=== PATIENT | female | born 1975 | race Caucasian/White ===

== ENCOUNTER 2024-09-17 11:36 | Emergency (ER) | payer OTHER, SELFPAY ==
[2024-09-17 11:38] VITALS: BP 138/98
[2024-09-17 13:34] LABS: Urine Albumin Negative (Neg - Trace); Urine Bilirubin Negative (Negative); Urine Character Clear (Clear); Urine Color Yellow; Urine Glucose Negative (Negative); Urine Ketone Negative (Negative); Urine Leukocyte Negative (Negative); Urine Nitrite Negative (Negative); Urine Occult Blood Negative (Negative); Urine Urobilinogen Negative (Neg - 1+)
--- NOTE | 2024-09-17 15:02 | ED.GENMED ---
History of Present Illness
General
Chief Complaint: Abdominal Symptoms
Source: patient
Exam Limitations: none
Time Seen by Provider: 09/17/24 14:52
History of Present Illness
History of Present Illness:
48-year-old female complaining of abdominal pain. Started right sided with radiation to the back yesterday. Now more lower abdomen and epigastric comfort. Patient is hungry. No fever or chills. No urinary symptoms. No diarrhea. No one else is
ill at home. No history of similar pain. Patient does not have menses. She is on control.
Past History
Past History
ED Past Medical History: GERD and Other (Anxiety, IBS); Negative HTN, Hypercholesterolemia, IDDM or NIDDM
ED Past Surgical History: None
Social History
Tobacco: Non-smoker
Alcohol: Occasional
Personal:
Living: with family
Employment: Employed
Family History
Family History: CAD
Review of Systems
Review of Systems
All Other Systems: Not applicable
Constitutional: Denies fever
Respiratory: Reports no symptoms
Cardiac: Reports no symptoms
: Reports no symptoms
Phy Exam
Physical Exam
Physical Exam:
GENERAL: Alert and oriented in no apparent distress
EYE: Orbits normal.
NECK: Supple
CARDIAC: Regular rate and rhythm without any obvious murmurs.
LUNGS: Clear breath sounds,normal
ABDOMEN: Soft, without focal tenderness or distention
NEUROLOGICAL: Alert and oriented , grossly non-focal
SKIN: Warm and dry, no rash or lesion, no discoloration, skin intact.
MUSCULOSKELETAL: No edema,no deformity.Good color
PSYCH: Normal and appropriate interaction.
Course
Orders/Labs/Results
Orders:
Orders
09/17/24 13:21
HCG, Urine Qualitative Screen Urgent
Date Specimen was Collected: 09/17/24
Time Specimen was Collected: 12:10
Comment: ADD ON
Urinalysis Reflex To Culture Urgent
Date Specimen was Collected: 09/17/24
Time Specimen was Collected: 12:10
09/17/24 14:58
Add On- LAB Urgent
Tests Added?: qual bhcg
09/17/24 15:01
CT Abd/Pel (IV only)-DH only Urgent
Comment:
Reason For Exam: Diffuse lower abdominal and epigastric pain
IV Insert/Care/Rem.- Treatment PRN
0.9% Sodium Chloride 500 ml [Nss] 500 ml IV BOLUS
09/17/24 15:31
Complete Blood Count/With Diff Urgent
Comprehensive Metabolic Panel Urgent
Lipase Urgent
TSH Reflex To Free T4 Urgent
Abnormal Lab Results
09/17/24
15:31
MCH 32.3 H pg
(27.0-31.0)
Chloride 108 H mmol/L
(98-107)
09/17/24 15:31
09/17/24 15:31
Vital Signs
Initial and Last Documented VS:
Initial Vital Signs
Temp Pulse Resp BP Pulse Ox
98.8 F 104 16 138/98 96
09/17/24 11:38 09/17/24 11:38 09/17/24 11:38 09/17/24 11:38 09/17/24 11:38
Last Documented Vital Signs
Temp Pulse Resp BP Pulse Ox
98.5 F 93 16 157/74 96
09/17/24 15:33 09/17/24 15:33 09/17/24 15:33 09/17/24 15:33 09/17/24 15:33
*Radiology
Radiology exam reviewed: radiology read reviewed (Negative CT scan)
*Pulse Oximetry
Patient hypoxic: no (96%)
*Critical Care Note
Total Time (30-74mins, 75-104mins- exclusive of procedures): Not Applicable
Update Note
Update Note:
Patient medically stable. No serious etiology found for her symptoms. Discharged to follow-up
ED Attending Note
-
Portions of this chart may have been created with voice recognition software.� Occasional wrong word or��sound alike� substitutions may have occurred due to the inherent limitations of voice recognition software.
Discharge Plan
Departure
Patient Disposition: Home (Routine Discharge)
Date of Disposition: 09/17/24
Time of Disposition: 18:04
Patient with high blood pressure during this ER visit?: Yes
Discharge Problem:
Abdominal pain/unknown etiology
Instructions: Abdominal Pain, BLOOD PRESSURE
Prescriptions:
No Action
No Current Medications
0
Referrals:
Jayce Dai MD [Active, Gastroenterology] - Next open appointment
Osbaldo Muir MD [Family Provider, Internal Medicine] - Follow up in 2-3 days
Activity Restrictions/Additional Instructions:
Follow-up closely with your primary physician and also recommend GI follow-up
Light diet
Return with increased pain fever vomiting or any other concerning symptoms
Interventions
Interventions:
*Risk Screen - Suicide Last Done: 09/17/24 11:38
*General Assessment Last Done: 09/17/24 15:33
*Neglect/Abuse Screening Last Done: 09/17/24 11:38
*ED- Fall Risk Assessment Last Done: 09/17/24 15:33
*ED COVID-19 Vaccine History Last Done: 09/17/24 15:33
KW-Ozvart-[id number] Assessment Last Done: 09/17/24 15:33
Discharge Date and Time
Print Language: BERMUDIAN
[2024-09-17 15:20] LABS: HCG, Urine Qualitative Screen Negative
[2024-09-17 15:30] VITALS: BP 157/74
[2024-09-17 15:33] VITALS: BP 157/74; BMI 29.4
[2024-09-17] MEDS: NSS 500 IV (15:37)
[2024-09-17 15:41] LABS: % Basophils 0.5 % (0-2); % Eosinophils 1.3 % (0-6); % Immature Granulocytes 0.3 % (0-0.5); % Lymphocytes 24.6 % (20.5-51.1); % Monocytes 6.8 % (1.7-9.3); % Neutrophils 66.5 % (42.2-75.2); Absolute Basophils 0.1 10^3/uL (0-0.2); Absolute Eosinophils 0.1 10^3/uL (0-0.7); Absolute Lymphocytes 2.3 10^3/uL (1.2-3.4); Absolute Monocytes 0.6 10^3/uL (0.1-0.6); Absolute Neutrophils 6.1 10^3/uL (1.4-6.5); Hematocrit 41.1 % (37.0-47.0); Hemoglobin 13.9 g/dL (12.0-16.0); Mean Corp Hgb Conc. 33.8 g/dL (33.0-37.0); Mean Corpuscular Hgb 32.3 pg (27.0-31.0); Mean Corpuscular Volume 95.4 fL (81.0-99.0); Mean Platelet Volume 9.8 fL (7.4-10.4); Nucleated Red Blood Cells % 0 %; Platelet Count 286 10^3/uL (130-400); Red Blood Cell Count 4.31 10^6/uL (4.20-5.40); Red Cell Dist. Width 12.4 % (11.5-14.5); White Blood Cell Count 9.1 10^3/uL (4.8-10.8)
[2024-09-17 15:55] LABS: ALT (SGPT) 16 U/L (0-35); AST (SGOT) 19 U/L (14-36); Albumin 4.2 g/dl (3.5-5.0); Alkaline Phosphatase 44 U/L (38-126); Blood Urea Nitrogen 12 mg/dl (7-17); Calcium 9.4 mg/dl (8.4-10.2); Carbon Dioxide 24 mmol/L (22-30); Chloride 108 mmol/L (98-107); Estimated Creatinine Clearance 98 ml/min; Glucose 79 mg/dl (70-99); Potassium 3.9 mmol/L (3.5-5.1); Sodium 139 mmol/L (135-145); Total Bilirubin 0.6 mg/dl (0.2-1.3); Total Protein 6.7 g/dl (6.3-8.2); eGFR > 60.00
[2024-09-17 16:00] VITALS: BP 137/70
[2024-09-17 16:26] LABS: Lipase 74 U/L (23-300)
[2024-09-17 16:55] LABS: TSH Reflex To Free T4 0.99 uIU/ml (0.47-4.68)
== END 2024-09-17 18:27 | disposition home or self-care (01) ==
LOC: EMR 11:36
PROVIDERS: Emergency Medicine; EMERGENCY PHYSICIAN Emergency Medicine; FAMILY PHYSICIAN Internal Medicine
DX: R10.9 Unspecified abdominal pain (principal); K21.9 Gastro-esophageal reflux disease without esophagitis; F41.9 Anxiety disorder, unspecified; K58.9 Irritable bowel syndrome, unspecified; Z82.49 Family history of ischemic heart disease and other diseases of the circulatory system
CPT/HCPCS: 99284; 96360; 74177; 80053; 81003; 81025; 83690; 84443; 85025; Q9967

== ENCOUNTER 2024-12-21 12:46 | Emergency (ER) | payer OTHER, SELFPAY ==
[2024-12-21 12:50] VITALS: BP 140/115
[2024-12-21 13:15] LABS: Hematocrit 42.6 % (37.0-47.0); Hemoglobin 15.0 g/dL (12.0-16.0); Mean Corp Hgb Conc. 35.2 g/dL (33.0-37.0); Mean Corpuscular Volume 91.8 fL (81.0-99.0); Nucleated Red Blood Cells % 0 %; Platelet Count 319 10^3/uL (130-400); Red Cell Dist. Width 11.9 % (11.5-14.5)
[2024-12-21 13:20] LABS: ALT (SGPT) 24 U/L (0-35); AST (SGOT) 24 U/L (14-36); Albumin 4.6 g/dl (3.5-5.0); Alkaline Phosphatase 57 U/L (38-126); Blood Urea Nitrogen 13 mg/dl (7-17); Calcium 9.6 mg/dl (8.4-10.2); Carbon Dioxide 23 mmol/L (22-30); Chloride 106 mmol/L (98-107); Glucose 106 mg/dl (70-99); Potassium 3.9 mmol/L (3.5-5.1); Sodium 138 mmol/L (135-145); Total Protein 7.7 g/dl (6.3-8.2); eGFR > 60.00
[2024-12-21 13:32] LABS: Troponin I < 0.012 ng/ml
[2024-12-21 14:04] VITALS: BP 144/82
[2024-12-21] MEDS: TORADOL 15 MG IV (15:15)
[2024-12-21] MEDS: NSS 1000 IV (15:15)
--- NOTE | 2024-12-21 15:18 | ED.GENMED ---
History of Present Illness
<Dorinda Gutierrez PA-C - Last Filed: 12/22/24 09:50>
General
Chief Complaint: Chest Pain
Source: patient
Exam Limitations: none
Time Seen by Provider: 12/21/24 14:06
Nursing documentation reviewed up to this point in time: agreed with
History of Present Illness
History of Present Illness:
Patient is a 49-year-old female who presents the emergency department with a few days of chest pressure as well as lightheadedness. Patient states approximately 4 weeks ago she began with acute onset vertigo which was shortly followed by viral URI
symptoms. Head congestion persisted prompting visit to her primary care who started on a course of Augmentin for sinusitis. Patient states that she is on day 6 of Augmentin and over the past 2 days has felt very lightheaded. She also states that
her heart rate has been elevated at home into the 120s with very minimal exertion. She describes a pressure in her mid chest as well as a pain in her left lateral chest over the past 2-3 days. She denies any clear exertional or pleuritic component.
She denies any fever or productive cough. No severe back pain. No lower leg pain or swelling. She denies any recent travel or recent surgeries. She is on an oral contraceptive pill.
Patient does report frequent sinus infections.
Past History
<Dorinda Gutierrez PA-C - Last Filed: 12/22/24 09:50>
Past History
ED Past Medical History: GERD and Other (Anxiety, IBS); Negative HTN, Hypercholesterolemia, IDDM or NIDDM
ED Past Surgical History: None
Social History
Tobacco: Non-smoker
Alcohol: Occasional
Personal:
Living: with family
Employment: Employed
Family History
Family History: CAD
Review of Systems
<Dorinda Gutierrez PA-C - Last Filed: 12/22/24 09:50>
Review of Systems
Allergies reviewed?: Yes
All Other Systems: ROS reviewed and negative except as documented in HPI and ROS
Phy Exam
<Dorinda Gutierrez PA-C - Last Filed: 12/22/24 09:50>
Physical Exam
Physical Exam:
Vitals: Hypertensive, tachycardic on arrival. Otherwise vital signs stable. Afebrile
General: Patient is well appearing, no acute distress. Nontoxic appearing
Skin: Warm and dry, no rashes or lesions
Head: Normocephalic, atraumatic
Eyes: Sclera nonicteric.
Throat: Protecting airway
Neck: Normal ROM, no cervical spine tenderness, no meningismus
Cardiac: Regular rate and rhythm, no murmurs. No reproducible chest wall tenderness.
Pulm: Normal respiratory effort, no wheezes, rales, rhonchi heard on exam
Abdomen: Abdomen soft and nontender.
Extremities: No evidence of cyanosis or edema. Negative Homans' sign bilaterally
Neuro: AAOx3. Grossly intact.
Psychiatric: Normal affect.
Scores
<Dorinda Gutierrez PA-C - Last Filed: 12/22/24 09:50>
Heart Score for Chest Pain Patients
STEMI patient?: Not applicable
PERC Rule Criteria
Age <50 years: No
HR <100 bpm: No
Room air oxygen sat >94%: Yes
History of DVT or PE: No
Recent trauma or surgery: No
Hemoptysis: No
Exogenous estrogen: Yes
Clinical signs suggestive of DVT: No
: No
Considered low risk for PE: Yes
PERC Score: 3
PE can be excluded by PERC: No
Course
<Dorinda Gutierrez PA-C - Last Filed: 12/22/24 09:50>
Orders/Labs/Results
Orders:
Orders
12/21/24
Electrocardiogram (*1) Stat
Reason for Study: Chest Pain
12/21/24 13:02
Complete Blood Count/With Diff Urgent
Comprehensive Metabolic Panel Urgent
HCG, Serum Qualitative Screen Urgent
Comment: ADD ON
TSH Reflex To Free T4 Urgent
Comment: ADD ON
Troponin I Urgent
12/21/24 14:36
Add On- LAB Urgent
Tests Added?: serum hcg, tsh w/ reflex to t4
0.9% Sodium Chloride 1000 ml [Nss] 1,000 ml IV BOLUS
Ketorolac [Toradol] 15 mg IV NOW STA
12/21/24 15:17
D-Dimer Urgent
12/21/24 15:55
CR Chest - 2 Views Urgent
Comment:
Reason For Exam: left sided chest pain; recent viral illness
12/21/24 15:59
Troponin I Urgent
12/21/24 16:05
Electrocardiogram (*1) Urgent
Reason for Study: Chest Pain
EKG- Treatment ONCE
12/21/24 16:[address] Non Medication Order As Directed
Physician Order: walking pulse ox
Above order entered?: Yes
Abnormal Lab Results
12/21/24
13:02
MCH 32.3 H pg
(27.0-31.0)
Absolute Neuts (auto) 6.8 H 10^3/uL
(1.4-6.5)
Absolute Monos (auto) 0.7 H 10^3/uL
(0.1-0.6)
Glucose 106 H mg/dl
(70-99)
12/21/24 13:02
12/21/24 13:02
Vital Signs
Initial and Last Documented VS:
Initial Vital Signs
Temp Pulse Resp BP Pulse Ox
98.0 F 109 20 140/115 99
12/21/24 12:50 12/21/24 12:50 12/21/24 12:50 12/21/24 12:50 12/21/24 12:50
Last Documented Vital Signs
Temp Pulse Resp BP Pulse Ox
98.0 F 92 14 147/83 98
12/21/24 12:50 12/21/24 16:55 12/21/24 16:38 12/21/24 16:38 12/21/24 16:55
<Doyle Savage MD - Last Filed: 12/21/24 18:08>
Orders/Labs/Results
Orders:
Orders
12/21/24
Electrocardiogram (*1) Stat
Reason for Study: Chest Pain
12/21/24 13:02
Complete Blood Count/With Diff Urgent
Comprehensive Metabolic Panel Urgent
HCG, Serum Qualitative Screen Urgent
Comment: ADD ON
TSH Reflex To Free T4 Urgent
Comment: ADD ON
Troponin I Urgent
12/21/24 14:36
Add On- LAB Urgent
Tests Added?: serum hcg, tsh w/ reflex to t4
0.9% Sodium Chloride 1000 ml [Nss] 1,000 ml IV BOLUS
Ketorolac [Toradol] 15 mg IV NOW STA
12/21/24 15:17
D-Dimer Urgent
12/21/24 15:55
CR Chest - 2 Views Urgent
Comment:
Reason For Exam: left sided chest pain; recent viral illness
12/21/24 15:59
Troponin I Urgent
12/21/24 16:05
Electrocardiogram (*1) Urgent
Reason for Study: Chest Pain
EKG- Treatment ONCE
12/21/24 16:[address] Non Medication Order As Directed
Physician Order: walking pulse ox
Above order entered?: Yes
Abnormal Lab Results
12/21/24
13:02
MCH 32.3 H pg
(27.0-31.0)
Absolute Neuts (auto) 6.8 H 10^3/uL
(1.4-6.5)
Absolute Monos (auto) 0.7 H 10^3/uL
(0.1-0.6)
Glucose 106 H mg/dl
(70-99)
12/21/24 13:02
12/21/24 13:02
Vital Signs
Initial and Last Documented VS:
Initial Vital Signs
Temp Pulse Resp BP Pulse Ox
98.0 F 109 20 140/115 99
12/21/24 12:50 12/21/24 12:50 12/21/24 12:50 12/21/24 12:50 12/21/24 12:50
Last Documented Vital Signs
Temp Pulse Resp BP Pulse Ox
98.0 F 92 14 147/83 98
12/21/24 12:50 12/21/24 16:55 12/21/24 16:38 12/21/24 16:38 12/21/24 16:55
<Dorinda Gutierrez PA-C - Last Filed: 12/22/24 09:50>
MDM/Problems Addressed
Differential Diagnosis Includes:
Not limited to: Viral illness, acute dehydration, cardiac arrhythmia, pericarditis/myocarditis, pleurisy, GERD, pulmonary embolism, pneumonia, etc.
MDM/Problems Addressed:
49-year-old female presenting with chest pressure and tachycardia following recent viral illness. Patient currently on Augmentin for sinusitis as prescribed by primary care provider. No clear exertional, pleuritic or positional component to pain. No
fevers or productive cough.
Vitals and physical exam as above. Patient well appearing, in no distress. Cardio/pulmonary assessment unremarkable. No clinical evidence of DVT on exam. She is - appearing and neurologically intact.
Differential broad. Possibly related to recent viral illness, including developing pneumonia or possible myocarditis/pericarditis. Could be muscular. While PE seems less likely � she does have history of tachycardia and is on an OCP � will screen w/
d-dimer. Symptoms do not seem consistent with acute coronary syndrome however will send serial troponins /EKGs.
Will check basic labs, TSH. Will give fluids, Toradol, and reassess after above.
Update: labs without clinically significant abnormalities. D-dimer negative. Serial troponins undetectable x 2 with non-ischemic EKG. Chest x-ray without acute findings. Did obtainin walking pulse ox and patient�s heart rate remained normal in 80s �
90s and she had no shortness of breath.
Work up in ED unremarkable. Possibly post viral syndrome or mild pericarditis. No indication for acute emergent pathology today. Recommended NSAIDS and and primary care follow-up. She will continue augmentin. Very strict return precautions
discussed.
Chronic conditions affecting care:
N/A
Acute Exacerbation and/or Progression of Chronic Illness:
N/A
<Dorinda Gutierrez PA-C - Last Filed: 12/22/24 09:50>
*Radiology
Radiology exam reviewed: preliminary read by ED provider (Chest x-ray reviewed by me-no acute abnormalities) and radiology read reviewed
*Pulse Oximetry
SaO2: 99
Oxygen Mode of Delivery: Room air
Patient hypoxic: no
*EKG
Interpreted by ED Provider?: Yes
EKG Intrepretation Date: 12/21/24
Interpretation: abnormal
Comparison EKG: changes noted
Heart Rate: 105
Rate: tachycardiac
Rhythm: sinus
Douglas: left axis deviation
Interval: normal QT interval
QRS Pattern: normal QRS
Ischemia: non-specific ST changes
*Any Commodity Sales Deliverer Interpretation
Rate: normal
Interpretation: normal
Heart Rate: 86
Rhythm: sinus
*Critical Care Note
Total Time (30-74mins, 75-104mins- exclusive of procedures): Not Applicable
<Dorinda Gutierrez PA-C - Last Filed: 12/22/24 09:50>
Patient Management
Discussion with other providers: Outside Sales Account Executive (Case discussed with attending ED physician)
ED Attending Note
<Dorinda Gutierrez PA-C - Last Filed: 12/22/24 09:50>
-
Portions of this chart may have been created with voice recognition software.� Occasional wrong word or��sound alike� substitutions may have occurred due to the inherent limitations of voice recognition software.
<Doyle Savage MD - Last Filed: 12/21/24 18:08>
ED Attending Note
Patient seen and examined by attending physician: Yes
ED Attending Note:
I have seen and evaluated the patient with a [id number] encounter. I have spoken to the advance practicer provider and involved in the medical history, the physical exam, medical decision making.
Evaluation and management service: agree unless noted differently below.
Results interpretation: agree unless noted differently below.
Focused HPI: 49-year-old female with history as noted presents to the ER for evaluation of multiple complaints mainly chest pain and dizziness, palpitations. Patient reports that she has been dealing with vertigo for the past 2 weeks or so. She
describes positional dizziness/lightheadedness. She has also been dealing with sinus congestion. She says she was started on antibiotic and she is on day 6 of Augmentin for presumed sinusitis. Over the past few days she noticed that she is having
some mild chest pains. She also reports that she feels her heart rate has been elevated particularly with activity.
Physical exam: Awake and alert not in distress. Had tachycardia in triage normalized by my assessment; she also had hypertension in triage which was normalized by my assessment. No tachypnea or hypoxia, no fever. No cardiac rubs gallops or
murmurs. Lungs sound clear to auscultation bilaterally. She has no edema in the legs. Good pulses throughout. Cranial nerves are intact and extraocular moods are intact without nystagmus. TMs are clear bilaterally. Moist mucous membranes.
Medical Decision Makin-year-old female presents for evaluation of some chest discomfort and palpitations over the past few days in the setting of recent URI symptoms and antibiotics for sinus infection. Vitals and exam as above. She had labs
sent off including a CBC and a CMP which showed no clinically significant abnormalities. Troponins undetectable x 2. D-dimer negative. Thyroid studies unremarkable. Chest x-ray shows no acute disease. Her EKG shows sinus rhythm. Low suspicion
for emergent pathology, could be mild pericarditis given onset of symptoms postviral could also be GERD in the setting of recent antibiotics. Stable for discharge to follow-up with her primary care physician recommended trial of NSAIDs for now for
possible pericarditis. All questions answered.
Discharge Plan
Departure
Patient Disposition: Home (Routine Discharge)
Date of Disposition: 12/21/24
Time of Disposition: 17:45
Patient with high blood pressure during this ER visit?: Yes
Discharge Problem:
Chest pressure, Sinusitis
Instructions: Chest pain (DC), Sinusitis in adults - ED (DC)
Prescriptions:
No Action
No Current Medications
0
Referrals:
Osbaldo Muir MD [Family Provider, Internal Medicine]
Doyle Gr MD [Active, Otology]
Activity Restrictions/Additional Instructions:
RETURN TO THE EMERGENCY DEPARTMENT WITH ANY FEVERS, PRODUCTIVE COUGH, CHEST PAIN, SHORTNESS OF BREATH/DIFFICULTY BREATHING, SEVERE HEADACHE, CHANGES IN MENTAL STATUS, OR ANY OTHER CONCERNS
- As discussed�your lab work including blood counts, chemistry panel, cardiac enzyme, and D-dimer were negative in the emergency department. Your chest x-ray showed no acute findings.
- Your chest pressure may be due to pericarditis. You should take motrin/ibuprofen for the next week.
- Continue to take your antibiotic as directed by your primary care. You can take Tylenol/Motrin as needed for head pressure as well as use a saline nasal rinse. It is important to stay well-hydrated.
- Follow-up with your primary care provider to ensure that your symptoms are improving. Contact information for an ENT has been provided as well for follow-up given recurrent sinus infections
Monitor your symptoms closely and return to the emergency department with any acute worsening/new symptoms or any other concerns
Interventions
Interventions:
*Risk Screen - Suicide Last Done: 12/21/24 12:50
*General Assessment Last Done: 12/21/24 12:50
*Neglect/Abuse Screening Last Done: 12/21/24 14:06
*ED- Fall Risk Assessment Last Done: 12/21/24 14:06
*ED COVID-19 Vaccine History Last Done: 12/21/24 14:06
*Nursing Disposition Last Done: 12/21/24 18:01
ED- Cardiac Assessment Last Done: 12/21/24 14:05
Discharge Date and Time
Discharge Date/Time: 12/21/24 18:02
Print Language: UKRAINIAN
[2024-12-21 15:41] LABS: D-Dimer < 0.27 ug/mlFEU (0.00-0.50)
[2024-12-21 16:00] VITALS: BP 128/65
[2024-12-21 16:28] LABS: Troponin I < 0.012 ng/ml
[2024-12-21 16:33] LABS: HCG, Serum Qualitative Screen Negative
[2024-12-21 16:38] VITALS: BP 147/83
== END 2024-12-21 18:02 | disposition home or self-care (01) ==
LOC: EMR 12:46
PROVIDERS: Emergency Medicine; Physician Assistant; EMERGENCY PHYSICIAN Emergency Medicine; FAMILY PHYSICIAN Internal Medicine
DX: J32.9 Chronic sinusitis, unspecified (principal); R42 Dizziness and giddiness
CPT/HCPCS: 99285; 96374; 96361; 71046; 80053; 84443; 84484; 84703; 85025; 85379; 93005